=== PATIENT | male | born 1985 | race Caucasian/White ===

== ENCOUNTER 2016-11-02 11:30 | Emergency (ER) | payer OTHER ==
[~2016-11-02] VITALS: Ht 195.6 cm; Wt 139.0 kg
[~2016-11-02 11:30] MED LIST: ALBUAER2 INH; ALL300 PO; LISI-461 PO
[2016-11-02 11:38] VITALS: TEMP 36.5; Ht 195.6 cm; Wt 139.0 kg
--- NOTE | 2016-11-02 11:48 | EMERGENCY ROOM VISIT NOTE ---
ED Visit Note First contact with patient: 11:43 CHIEF COMPLAINT: Left Ankle pain, abrasion right knee s/p fall. HISTORY OF PRESENT ILLNESS: This 31-year-old male patient presents to the emergency department approximately 1 hour after sustaining an injury to the left ankle and foot with a twisting, inversion motion, as well as an abrasion on his right knee, when he slipped on algae and fell on brick. 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 The patient complains of pain along the outside of the ankle. The patient does report pain of the lateral foot. The patient rates the pain as throbbing with occasional pins and needles and 5/10. The patient is able to bear weight on the foot. Constant pain, worse with movement, weight bearing, and the dependent position. No knee pain, the patient is able to move their toes. No numbness or weakness of the foot, no laceration over the left ankle or foot. The patient has not had a previous fracture to this ankle, but did have a left ankle sprain and January 2014. The abrasion on the patient's right leg is on the anterior aspect of the distal knee. The patient denies pain , states bleeding was minimal. He states he would just like a Band-Aid over the wound. The patient has taken nothing for the pain. The patient denies any other injury. The patient states he believes his tetanus shot is up-to-date and refuses vaccination in the ED. REVIEW OF SYSTEMS: A 6 system review of systems was completed with positives and pertinent negatives listed in the HPI. ALLERGIES: None MEDICATIONS: Lisinopril, albuterol PMH: Pretension SOCIAL HISTORY: The patient lives locally with family. He denies drug, alcohol , tobacco use. PHYSICAL EXAM: Vital Signs: Reviewed Nurse's notes, vital signs stable. GENERAL : This is a 31-year-old male, no acute distress, but appears in pain, well- developed, well-nourished. MENTAL STATUS: Alert, oriented to person place and time, and cooperative. MUSCULOSKELETAL: The left ankle is swollen and tender over the lateral malleolus, but the skin is intact and there is no ligamentous instability. There is mild fifth metatarsal tenderness. There is no tenderness over the rest of the foot. There is no calf or tibia/fibular tenderness. There is no visual deformity. The foot and toes are warm and well- perfused. Dorsalis pedis pulse 2+. Sensation to pain and light touch is intact. Capillary refill less than 2 seconds. SKIN: There is a 6 cm long abrasion over the distal aspect of the right knee. There are no deep structures of the wound involved. The wound is clean. The patient has no decreased range of motion. RADIOLOGY: Left Ankle X-Ray: FINDINGS: There is no fracture or dislocation. Diffuse soft tissue swelling. Tiny plantar heel spur. No radiopaque foreign bodies. IMPRESSION: No fractures. Left foot X-Ray: DISCUSSION: No acute fractures or dislocations are visualized. There is a small corticated ossicle adjacent to the navicular. There are osteoarthritic changes the level the first metatarsal phalangeal joint. There is soft tissue swelling at the level the ankle. IMPRESSION: 1. No acute fractures or dislocations identified. EMERGENCY DEPARTMENT COURSE: I examined the patient. X-rays of the left foot and ankle were reviewed by myself and read by radiology and reveal no acute fracture. The wound on the patient's right leg was cleaned with sterile saline solution and gauze. The wound was bandaged with Steri-Strips, bacitracin, and gauze. A gel ankle splint was applied to the ankle under my direction and the position was satisfactory. Neurovascular status was rechecked and intact. The patient refused crutches and states he has some at home. The patient was discharged home in good condition. I discussed the patient has elevated blood pressure in the emergency department. I do feel that this is situational. I encouraged him to follow up outpatient with his PCP within one week. DIFFERENTIAL DIAGNOSIS: Ankle sprain, ankle fracture, foot fracture, abrasion, laceration, infection, and others DIAGNOSIS: Left ankle sprain, abrasion right knee DISCHARGE INSTRUCTIONS: You have been treated in the Emergency Department for an Ankle sprain. For pain control, you can use the following yyju-wgc-jmnduql medicines (if >12 yo): Ibuprofen(Motrin, Advil) may be used for fever or pain. Use 600mg every six hours as needed. Take with food. Avoid using more than 2400mg in a 24 hour period. Do not use 2400mg per day for more than three consecutive days without physician direction. Prolonged inappropriate use can lead to stomach upset or ulcers. (AND/OR) Acetaminophen(Tylenol) may be used for fever or pain. Use 1000mg every six to eight hours as needed. Avoid using more than 3000mg in a 24 hour period. If this is a recent injury (<24 hrs), ice can be applied to the area of pain for the first 3 days to help decrease pain and inflammation. You have been provided the number for an Orthopaedic Surgeon. You should call this number if no improvement in one week to establish a follow-up visit from today's Emergency Department visit. Keep the ankle brace/splint in place until cleared by your primary care doctor or you are feeling better. Use the crutches you have been provided to keep ALL weight off of the ankle until weight bearing is tolerable. Proper wound care is essential for adequate wound healing and infection prevention. You can shower and clean the wound with soap and water. Do not scour over the wound, pat dry with a towel. Do not submerse the wound (i.e. bathe or dish wash) until the wound has fully healed. You can use an antibiotic ointment with a dressing over the wound for the next 3-4 days. After this time you may leave the wound dry and open to the air. Leave Steri-Strips in place. They will follow off on their own. Please follow up within 1 week with your primary care provider for further evaluation and management of your elevated blood pressure. Return to the Emergency Department if your current symptoms worsen despite treatment course outlined above, or if you develop any of the following symptoms : intractable pain despite aforementioned treatment course or new onset of numbness or tingling of the foot. Problem List Medical Problems: (1) Varicose veins of both legs with edema Status: Chronic Current/Historical Medications Scheduled Lisinopril (Zestril), 10 MG PO DAILY Scheduled PRN Albuterol (Ventolin), 2 PUFFS INH Q8 PRN for cough/dyspnea Allergies Coded Allergies: No Known Allergies (Unverified , 11/02/16) Vital Signs Date Time Temp Pulse Resp B/P (MAP) Pulse Ox O2 Delivery O2 Flow Rate FiO2 11/02/16 11:38 36.5 104 20 197/135 94 Departure Information Impression Primary Impression: Left ankle sprain Additional Impression: Abrasion, right knee, initial encounter Dispostion Home / Self-Care Condition GOOD Referrals No Doctor, Assigned (PCP) Lincoski, Christopher J., MD Patient Instructions ED Sprain Ankle, My [facility] Additional Instructions You have been treated in the Emergency Department for an Ankle sprain. For pain control, you can use the following [id number]-mtv-nlkuvyo medicines (if >12 yo): Ibuprofen(Motrin, Advil) may be used for fever or pain. Use 600mg every six hours as needed. Take with food. Avoid using more than 2400mg in a 24 hour period. Do not use 2400mg per day for more than three consecutive days without physician direction. Prolonged inappropriate use can lead to stomach upset or ulcers. (AND/OR) Acetaminophen(Tylenol) may be used for fever or pain. Use 1000mg every six to eight hours as needed. Avoid using more than 3000mg in a 24 hour period. If this is a recent injury (<24 hrs), ice can be applied to the area of pain for the first 3 days to help decrease pain and inflammation. You have been provided the number for an Orthopaedic Surgeon. You should call this number if no improvement in one week to establish a follow-up visit from today's Emergency Department visit. Keep the ankle brace/splint in place until cleared by your primary care doctor or you are feeling better. Use the crutches you have been provided to keep ALL weight off of the ankle until weight bearing is tolerable. Proper wound care is essential for adequate wound healing and infection prevention. You can shower and clean the wound with soap and water. Do not scour over the wound, pat dry with a towel. Do not submerse the wound (i.e. bathe or dish wash) until the wound has fully healed. You can use an antibiotic ointment with a dressing over the wound for the next 3-4 days. After this time you may leave the wound dry and open to the air. Leave Steri-Strips in place. They will follow off on their own. Please follow up within 1 week with your primary care provider for further evaluation and management of your elevated blood pressure. Return to the Emergency Department if your current symptoms worsen despite treatment course outlined above, or if you develop any of the following symptoms : intractable pain despite aforementioned treatment course or new onset of numbness or tingling of the foot. Problem Qualifiers Primary Impression: Left ankle sprain Encounter type: initial encounter Involved ligament of ankle: unspecified ligament Qualified Codes: S93.402A - Sprain of unspecified ligament of left ankle, initial encounter
--- NOTE | 2016-11-02 12:39 | DIAGNOSTIC IMAGING REPORT ---
LEFT FOOT MIN 3 VIEWS ROUTINE CLINICAL HISTORY: Left foot pain and swelling. Trauma. COMPARISON: None. DISCUSSION: No acute fractures or dislocations are visualized. There is a small corticated ossicle adjacent to the navicular. There are osteoarthritic changes the level the first metatarsal phalangeal joint. There is soft tissue swelling at the level the ankle. IMPRESSION: 1. No acute fractures or dislocations identified. Electronically signed by: Nathaniel Turcios M.D. 11/02/2016 12:38 PM Dictated Date/Time: 11/02/2016 12:36 PM
--- NOTE | 2016-11-02 12:41 | DIAGNOSTIC IMAGING REPORT ---
LEFT ANKLE 3 VIEWS HISTORY: left ankle pain COMPARISON: None. FINDINGS: There is no fracture or dislocation. Diffuse soft tissue swelling. Tiny plantar heel spur. No radiopaque foreign bodies. IMPRESSION: No fractures. Electronically signed by: Bobo Sanchez M.D. 11/02/2016 12:40 PM Dictated Date/Time: 11/02/2016 12:39 PM
[2016-11-02 13:24] VITALS: BP 190/96; PULSE 94; O2SAT 96
== END 2016-11-02 13:24 | disposition home or self-care (01) ==
LOC: C.EDB 11:31 → C.EDD 13:24
DX: S93.402A Sprain of unspecified ligament of left ankle, initial encounter (principal); S80.211A Abrasion, right knee, initial encounter; X50.9XXA Other and unspecified overexertion or strenuous movements or postures, initial encounter